=== PATIENT | male | born 1970 ===

== ENCOUNTER 2018-07-08 00:45 | Emergency (ER) | payer SELFPAY ==
[2018-07-08] MEDS ORDERED: Sodium Chloride 0.9% 1,000 ML IV ONE (01:01)
[2018-07-08 01:29] LABS: BASO # 0.1 K/uL (0.0-0.2); BASO % 0.3 % (0.0-2.0); EOS # 0.2 K/uL (0.0-0.7); EOS % 0.9 % (0.0-4.0); HEMOGLOBIN 16.2 g/dL (12.0-18.0); LYMPH # 5.2 K/uL (1.0-4.3); LYMPH % 26.1 % (20.0-40.0); MEAN CELL VOLUME 88.1 fL (80.0-94.0); MEAN CORPUSCULAR HEMOGLOBIN 29.6 pg (27.0-31.0); MEAN CORPUSCULAR HGB CONC 33.6 g/dL (33.0-37.0); MEAN PLATELET VOLUME 9.7 fL (7.2-11.7); MONO # 1.2 K/uL (0.0-0.8); MONO % 5.8 % (0.0-10.0); NEUT # 13.4 K/uL (1.8-7.0); NEUT % 66.9 % (50.0-75.0); NRBC % 0.1 % (0.0-2.0); RBC 5.47 Mil/uL (4.40-5.90); RED CELL DISTRIBUTION WIDTH 12.4 % (11.5-14.5)
[2018-07-08] MEDS ORDERED: Sodium Chloride 0.9% 1,000 ML ONE (01:37)
[2018-07-08 02:14] VITALS: RESP 18
[2018-07-08 02:18] LABS: B-TYPE NATRIURETIC PEPTIDE 37.3 pg/mL (0-450)
[2018-07-08 02:20] LABS: ALBUMIN 3.8 g/dL (3.5-5.0); CALCIUM 8.3 mg/dl (8.6-10.4); TROPONIN I 0.02 ng/mL (0.00-0.120)
[2018-07-08 02:23] LABS: ALB/GLOB RATIO 1.4 (1.0-2.1)
[2018-07-08 02:34] LABS: SQUAMOUS EPITHIAL 1 /hpf (0-5); URINE BACTERIA RARE (<OCC); URINE BILIRUBIN NEGATIVE (NEGATIVE); URINE BLOOD NEGATIVE (NEGATIVE); URINE CLARITY Hazy (Clear); URINE COLOR Yellow (YELLOW); URINE GLUCOSE (UA) NORMAL (Normal); URINE LEUKOCYTE ESTERASE NEG Leu/uL (Negative); URINE PROTEIN 2+ mg/dL (NEGATIVE); URINE UROBILINOGEN NORMAL mg/dL (0.2-1.0)
[2018-07-08 02:38] VITALS: BP 129/62; PULSE 89
[2018-07-08 02:40] VITALS: O2SAT 98
--- NOTE | 2018-07-08 02:40 | C.PDOC ---
History Of Present Illness 48 y/o male ,MICHELE, presents to the ED for evaluation after taking amoxicillin s/p dental intervention today from abscess tooth. The patient states he immediately became prostrate with vomiting. As per EMS, he was given SOLE-Medrol and Benadryl in the field. The patient denies developing any hives. Time Seen by Provider: 07/08/18 01:01 Chief Complaint (Nursing): Medical Clearance History Per: Patient History/Exam Limitations: no limitations Onset/Duration Of Symptoms: Hrs Current Symptoms Are (Timing): Better Recent travel outside of the [place]: No Past Medical History Reviewed: Historical Data, Nursing Documentation, Vital Signs Vital Signs: Last Vital Signs Temp 96.8 F L 07/08/18 00:55 Pulse 94 H 07/08/18 02:13 Resp 18 07/08/18 02:13 BP 92/50 L 07/08/18 02:13 Pulse Ox 98 07/08/18 02:13 - Medical History PMH: HTN, Hypercholesterolemia, Seizures Surgical History: No Surg Hx Family History: States: Unknown Family Hx - Social History Hx Alcohol Use: No Hx Substance Use: No - Immunization History Hx Tetanus Toxoid Vaccination: No Hx Influenza Vaccination: No Hx Pneumococcal Vaccination: No Review Of Systems Except As Marked, All Systems Reviewed And Found Negative. Constitutional: Negative for: Fever, Chills Gastrointestinal: Positive for: Nausea, Vomiting Skin: Negative for: Other (hives) Physical Exam - Physical Exam Appears: Non-toxic, No Acute Distress Skin: No Rash Head: Atraumatic, Normacephalic Eye(s): bilateral: PERRL, EOMI Oral Mucosa: Moist Throat: Normal Neck: Supple Chest: Symmetrical Cardiovascular: Rhythm Regular, No Murmur Respiratory: No Rales, No Rhonchi, No Wheezing Gastrointestinal/Abdominal: Soft, No Tenderness, No Distention Back: No CVA Tenderness Extremity: Normal ROM Extremity: Bilateral: Normal Color And Temperature Neurological/Psych: Oriented x3, Normal Speech ED Course And Treatment - Laboratory Results Result Diagrams: 07/08/18 01:25 07/08/18 01:47 Lab Interpretation: Abnormal ([id number] leukocytosis, prob from steroids given) ECG: Interpreted By Me ECG Rhythm: Sinus Rhythm ECG Interpretation: Normal Rate From EC O2 Sat by Pulse Oximetry: 98 (RA) Pulse Ox Interpretation: Normal - Radiology CXR: Interpreted by Me CXR Interpretation: Yes: No Acute Disease Reevaluation Time: 02:39 Reassessment Condition: Improved (back to baseline) Medical Decision Making Medical Decision Making: adverse vs allergic rxn to amox vomiting without hives prior similar rxn's Disposition Doctor Will See Patient In The: Office Counseled Patient/Family Regarding: Studies Performed, Diagnosis - Disposition Referrals: [facility] [Outside] [facility] [Outside] [facility] [employer] [facility] [Outside] Non [facility] Provider, [Primary Care Provider] - Disposition: HOME/ ROUTINE Disposition Time: 02:40 Condition: GOOD Additional Instructions: avoid penicillin based meds You suffered an adverse vs allergic reaction to these meds outpatient follow-up as needed Return for worstening or significantly changed symptoms. Instructions: Adverse Drug Reactions, Adult (DC) Forms: [employer] (Malay) - Clinical Impression Clinical Impression: Adverse drug reaction - Scribe Statement The provider has reviewed the documentation as recorded by the Scribe Provider Attestation: Tamiko Tellez All medical record entries made by the Scribe were at my direction and personally dictated by me. I have reviewed the chart and agree that the record accurately reflects my personal performance of the history, physical exam, medical decision making, and the department course for this patient. I have also personally directed, reviewed, and agree with the discharge instructions and disposition.
[2018-07-08 02:46] VITALS: TEMP 98.2
[2018-07-08 02:51] LABS: BARBITURATES, UR NEGATIVE (NEGATIVE); BENZODIAZEPINES, UR NEGATIVE (NEGATIVE); OPIATES, UR NEGATIVE (NEGATIVE); PHENCYCLIDINE, UR NEGATIVE (NEGATIVE)
--- NOTE | 2018-07-08 08:32 | RAD ---
Date of service: 07/08/2018 PROCEDURE: CHEST RADIOGRAPH, 1 VIEW HISTORY: SOB COMPARISON: None available. FINDINGS: LUNGS: The lungs are well inflated and clear. PLEURA: No pneumothorax or pleural fluid seen. CARDIOVASCULAR: Normal. OSSEOUS STRUCTURES: No significant abnormalities. VISUALIZED UPPER ABDOMEN: Normal. OTHER FINDINGS: None. IMPRESSION: No active pulmonary disease.
--- NOTE | 2018-07-11 17:31 | CARD ---
APPROVED REPORT Date of service: 07/08/2018 EKG Measurement Heart [id number] <Conclusion> Sinus tachycardia Possible Left atrial enlargement Cannot rule out Inferior infarct, age undetermined Abnormal ECG
== END 2018-07-08 02:57 | disposition home or self-care (01) ==
LOC: SUPCPDRO 00:45 → C.ER 00:45
DX: R11.10 Vomiting, unspecified (principal); T36.0X5A Adverse effect of penicillins, initial encounter
CPT/HCPCS: 71045; 80053; 81001; 82948; 83880; 84484; 85025; 93005; 96361; 96374; 99285; G0480; J7030